=== PATIENT | male | born 1955 | race Asian ===

== ENCOUNTER 2017-10-13 16:10 | Emergency (ER) | payer SELFPAY ==
[2017-10-13] MEDS ORDERED: HYDROCODONE/APAP (7.5/325) TAB PO (18:00)
[2017-10-13] MEDS: HYDROCODONE/APAP (5/325) TAB PO (18:16)
== END 2017-10-13 18:18 | disposition home or self-care (01) ==
LOC: FTE 16:10
DX: I10 Essential (primary) hypertension (principal); E11.9 Type 2 diabetes mellitus without complications
CPT/HCPCS: 99283